=== PATIENT | female | born 2000 | race Caucasian/White ===

== ENCOUNTER 2021-05-11 13:18 | Emergency (ER) | payer OTHER ==
[2021-05-11 13:43] VITALS: BP 128/55; PULSE 83; TEMP 98.4; BMI 24.9
== END 2021-05-11 14:47 | disposition home or self-care (01) ==
LOC: JER 13:18 → EDBD 13:18 → JER 14:47
DX: J06.9 Acute upper respiratory infection, unspecified (principal)
CPT/HCPCS: 99283-25